=== PATIENT | male | born 1975 | race Caucasian/White ===

== ENCOUNTER 2019-05-06 10:42 | Emergency (ER) | payer BC, SELFPAY ==
[2019-05-06 10:45] VITALS: BP 149/77; PULSE 91; RESP 14; TEMP 36.7; O2SAT 99
--- NOTE | 2019-05-06 10:45 | DI.RAD_ITS ---
EXAM: XR ANKLE RT COMPLETE CLINICAL HISTORY: lateral ankle foot pain after fall TECHNIQUE: COMPARISON: No exams were available for comparison FINDINGS: Three views were obtained. The ankle mortise is well maintained. No fracture is seen. IMPRESSION:
--- NOTE | 2019-05-06 10:59 | W.ED.GENAD ---
Discharge Plan Disposition Patient Disposition: HOME Condition: Good Discharge Details Chief Complaint: Orthopedic Clinical Impression: Right ankle sprain, Contusion Primary Care Provider: Maricarmen,Local ED Provider: Saud Easley Home Meds and New Rx's Prescriptions: New lidocaine [Lidoderm] 1 PATCH patch 1 patch Topical Q24H Qty: 4 RF: 0 Discharge Instructions Instructions: Ankle Sprain (ED), Contusion in Adults (ED) Additional Instructions: This time the x-ray shows no evidence of fracture. I suspect you have a notable sprain of your ankle. Please use the lace up ankle splint as directed. You can take 1000 mg of Tylenol every 6 hours and 600 mg of ibuprofen every 6 hours. Please use Lidoderm patch as directed. If you notice any worsening of your symptoms, or any new symptoms such as vomiting, diarrhea, fever, chills, shortness of breath, chest pain, numbness, weakness, or fainting , please return immediately to the emergency department for reevaluation. Please follow up with your primary care provider as soon as possible for reassessment and reevaluation. As always, it was a pleasure participating in your medical care today. Medical Decision Making Pleasant 43-year-old male visiting from [place] presents after a fall. The patient was walking on the ice yesterday when he slipped, twisted his right ankle and hit his left ribs. He has had mild pain since then. Exam demonstrates a dime size bruise over his left lateral ribs around ribs 7 and 8. As well as mild tenderness over the lateral malleolus on the right ankle, with no other evidence of deformity or significant abnormality. Bedside E fast exam demonstrates no evidence of significant life-threatening abnormality or signs of free fluid in the abdomen, no evidence of pneumothorax or pericardial effusion. He does have a small right renal cyst, and his bladder does show evidence of very small atypical diverticula, but no evidence of other abnormality. Through shared decision making process we will hold off on radiographic imaging of the chest to avoid radiation exposure. Patient agrees with this plan. We will get an x-ray of the ankle to rule out fracture however I suspect he just has a sprain. Will give Lidoderm patch, recommend NSAIDs and a lace up ankle splint. 12:01 PM X-ray results negative for any evidence of acute fracture. Patient feels much better. He is able to ambulate well. Discussed red flags which to return. Signs and symptoms consistent with contusion and sprain. Recommend NSAIDs, close follow-up. I have extensively reviewed the treatment plan and discharge instructions with the patient. I have addressed all patient concerns at this time. The patient was made aware of what symptoms to monitor for that would warrant a return to the emergency department. Discussed the plan with the patient, they demonstrate verbal understanding and agreement with our assessment and plan at this time. E-FAST Exam type: Diagnostic Indication for exam: Blunt trauma Views obtained: hepatorenal, perisplenic, suprapubic, pericardial, R lung, L lung Findings and interpretations: all views were adequate. No abdominal free fluid or pericardial fluid seen. Normal lung sliding, normal sea shore sign, no bar code sign indicating no pneumothorax. The patient tolerated the procedure well and there were no complications. FINDINGS: Three views were obtained. The ankle mortise is well maintained. No fracture is seen. HPI General Date/Time Provider Initiated Documentation: 05/06/19 10:47. HPI Narrative: This is a pleasant 43-year-old male with no significant past medical history who presents today for evaluation after a fall. Patient states that last night he slipped on the ice, and developed pain in his right ankle and left chest. He has a small bruise over his left lateral chest, and mild pain with ambulation for his right ankle. Patient has taken occasional NSAIDs for the pain. He denies any shortness of breath, hemoptysis, numbness tingling weakness or abdominal pain. No pain with breathing. No other complaints at this time. No other modifying factors. No hematuria. Related Data Home Medications Medication Instructions Recorded Confirmed lidocaine [Lidoderm] 1 patch TOPICAL Q24H #4 patch 05/06/19 Previous Rx's Medication Instructions Recorded lidocaine [Lidoderm] 1 patch TOPICAL Q24H #4 patch 05/06/19 Allergies Allergy/AdvReac Type Severity Reaction Status Date / Time No Known Allergies Allergy Unverified 05/06/19 10:48 General Stated Complaint: Orthopedic KENIA: 4 Review of Systems All systems reviewed & are unremarkable except as noted in HPI and below PFSH Social History Smoking/Tobacco Use Status: Never Alcohol Intake: never Drug use: Never Substance use type: does not use Do you feel safe at home: Yes Do you feel safe in your relationship?: Yes Exam Narrative Exam Narrative: 1.Const: Well-nourished, Well-developed, appearing stated age 2.Eyes: PERRL, no conjunctival injection, and symmetrical lids. 3.ENT: Atraumatic external nose and ears. Moist MM. Neck: Symmetric, trachea midline, No thyromegaly. 4.CVS: +S1/S2, No murmurs or gallops. Peripheral pulses 2+ and equal in all extremities. Brisk capillary refill in all extremities. 5.RESP: Unlabored respiratory effort. Clear to auscultation bilaterally. No wheezes rales or rhonchi. Airway clear, no obstructions. No abrasions or ecchymosis. Chest movement symmetric with respirations. No significant chest wall tenderness. Minimal tenderness over the left lateral ribs, particularly over ribs 7 and 8. There is a very small bruise in this area roughly the size of a dime. Trachea midline. No crepitus. No step offs. No paradoxical movements. Lungs are clear to auscultation bilaterally. No rales, rhonchi, wheezing or stridor. Breath sound symmetric. No Sucking chest wounds. No clinical evidence of significant chest trauma. 6.GI: Soft, Nontender/Nondistended, No hepatosplenomegaly. No guarding or rebound. 7.MSK: Normocephalic, Extremities w/o deformity. No cyanosis or clubbing, Normal movement of all extremities. No gross deformities or discolorations or lesions. Tolerates full range of motion of extremities without significant tenderness. All compartments of upper and lower extremities are soft with no tenderness. Vascular exam demonstrates brisk capillary refill and intact pulses in all extremities. Pelvic exam demonstrates a stable pelvis, nontender to lateral compression and palpation of symphysis pubis. No clinical evidence of significant musculoskeletal trauma. Right ankle: Right ankle demonstrates mild tenderness over the lateral malleolus, just inferior to this. No evidence of significant deformity. Minimal tenderness of the lateral aspect of the foot. Patient is able to ambulate well. 8.Skin: Warm, Dry. No rashes or lesions. 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 Sensation grossly intact, no focal neurologic deficits. 10.Psych: (AAO) x3. Appropriate mood and affect Course Vital Signs Vital signs: Vital Signs Temperature 36.7 C 05/06/19 10:45 Pulse 91 H 05/06/19 10:45 Respiratory Rate 14 05/06/19 10:45 Blood Pressure 149/77 H 05/06/19 10:45 Pulse Oximetry 99 05/06/19 10:45 Temperature 36.7 C 05/06/19 10:45 Temperature Source Skin 05/06/19 10:45 Pulse 91 H 05/06/19 10:45 Respiratory Rate 14 05/06/19 10:45 Blood Pressure 149/77 H 05/06/19 10:45 Blood Pressure Position Sitting 05/06/19 10:45 Pulse Oximetry 99 05/06/19 10:45 Oxygen Delivery Method Room Air 05/06/19 10:45 Oxygen Flow Rate 0 05/06/19 10:45 Pain Level 7 05/06/19 10:45 Comment 05/06/19 10:45
[2019-05-06] MEDS: Acetaminophen 500 MG TAB 1000 MG PO (11:04)
[2019-05-06] MEDS: Lidocaine 5% Patch 1 PATCH TP (11:05)
== END 2019-05-06 14:55 | disposition home or self-care (01) ==
PROVIDERS: Emergency Provider Student in an Organized Health Care Education/Training Program
DX: S93.401A Sprain of unspecified ligament of right ankle, initial encounter (principal); S20.222A Contusion of left back wall of thorax, initial encounter; W00.0XXA Fall on same level due to ice and snow, initial encounter
CPT/HCPCS: 29515; 99283; 73610; E0114; L1902